=== PATIENT | female | born 1980 | race Caucasian/White ===

== ENCOUNTER 2020-04-24 08:06 | Day surgery (SDC) | payer MEDICAID ==
[2020-04-24] MEDS ORDERED: Midazolam 1 MG/ML 2 ML SDV ONE (08:08)
[2020-04-24] MEDS ORDERED: Propofol 200 MG/20 ML SDV ONE (08:08)
[2020-04-24] MEDS ORDERED: fentaNYL 100 MCG/2 ML SDV ONE (08:08)
[2020-04-24] MEDS ORDERED: Cyanocobalamin (Vitamin B12) 1,000 MCG/ML SDV IM ONE (09:00)
[2020-04-24] MEDS ORDERED: Lactated Ringers 1,000 ML IV ONE (09:00)
[2020-04-24] MEDS ORDERED: Glycopyrrolate 0.2 MG/ML 2 ML SDV IVPUSH ONE (10:00)
[2020-04-24] MEDS ORDERED: MVI, Adult with Vitamin K 10 ML, Thiamine 200 MG, Chromium/Copper/Mang/Selen/Zn 1 ML in... IV ONE ×4 (10:00)
--- NOTE | 2020-04-29 12:29 | OR ---
DATE OF PROCEDURE: 04/24/2020 SURGEON: Francis Shafer MD PREOPERATIVE DIAGNOSIS: Severe gastroesophageal reflux symptoms, status post a lap band placement. POSTOPERATIVE DIAGNOSES: 1. Marked esophagitis with esophageal dilation above laparoscopic adjustable gastric band. 2. Patchy antral gastritis. OPERATIVE PROCEDURE: Esophagogastroduodenoscopy with antral biopsies for CLOtest. ANESTHESIA: IV sedation. INDICATION FOR PROCEDURE: This is a 39-year-old status post laparoscopic adjustable gastric band placement and the band placement was done in July 2012. Recently, the patient had increasing problems with severe reflux symptoms. The symptoms continued despite the band fluid having been removed recently. The plan is to proceed with upper GI endoscopy with evaluation of band status. Potential risks including bleeding and perforation were discussed, and the patient wishes to proceed. DETAILS OF PROCEDURE: The patient was taken to the operating room, placed in a left lateral decubitus position. IV sedation was administered, after which the upper GI endoscope was passed orally through the length of the esophagus into the stomach with retroflexion view of the fundus, and thereafter through the pyloric channel and into the proximal duodenum. Findings included a normal hypopharynx, larynx, and upper esophageal sphincter, and esophageal body. However, there was marked dilation and retained fluid, which were both consistent of bilious material as well as some old retained undigested food. This was associated with marked esophagitis with the distal esophageal mucosa being diffusely reddened and edematous and quite friable. The band placement appeared to be appropriate and was otherwise not narrowed at that area, i.e. there is no mechanical obstruction at the level of the band placement. Retroflexion within the stomach revealed no complications such as band erosion. Thee was some patchy redness in the antrum of the stomach. Otherwise, the pyloric channel and proximal duodenum were unremarkable. At this point, biopsies were obtained from the antrum and sent for CLOtest for H. pylori. Minimal bleeding from the biopsy site was seen and as much fluid was removed from the stomach and distal esophagus as possible at this point and the procedure was then concluded. The patient appeared to be a good candidate for conversion to a Tiffanie-en-Y gastric bypass based on her persistent obesity and ongoing complications regarding her band in terms of esophagitis and significant likelihood of developing pulmonary complications over time if this present clinical presentation is not adequately treated. Francis Shafer MD /[id number]
== END 2020-04-24 11:45 | disposition home or self-care (01) ==
LOC: JP.SDS 08:06
PROVIDERS: ATTEND Surgery
DX: K29.70 Gastritis, unspecified, without bleeding (principal); K20.0 Eosinophilic esophagitis; I10 Essential (primary) hypertension; I48.91 Unspecified atrial fibrillation; Z98.84 Bariatric surgery status
CPT/HCPCS: 43239; 81025; 87081; J2250; J2704; J3010; J3411; J3420; J3490; J7120

== ENCOUNTER 2020-08-26 06:43 | Inpatient (IN) | payer BC, MEDICAID ==
[2020-08-26] MEDS: Dextrose 5%-Lactated Ringers 1,000 ML IV SCH ×2 (06:30→12:22)
[~2020-08-26 06:43] MED LIST: cefOXitin 2 GM Vial ONE
[2020-08-26] MEDS ORDERED: Scopolamine 1.5 MG Transdermal Patch TOP SCH (07:00)
[2020-08-26] MEDS ORDERED: Acetaminophen 500 MG Tab PO ONE (07:00)
[2020-08-26] MEDS ORDERED: fentaNYL 250 MCG/5 ML SDV ONE ×2 (07:14→08:38)
[2020-08-26] MEDS ORDERED: Rocuronium 50 MG/5 ML Vial ONE ×2 (07:15→09:08)
[2020-08-26] MEDS ORDERED: Propofol 200 MG/20 ML SDV ONE (07:15)
[2020-08-26] MEDS ORDERED: Neostigmine Methylsulfate 1 MG/ML 5 ML Syringe ONE (07:15)
[2020-08-26] MEDS ORDERED: Ondansetron 4 MG/2 ML SDV ONE (07:15)
[2020-08-26] MEDS ORDERED: Succinylcholine 200 MG/10 ML MDV ONE (07:15)
[2020-08-26] MEDS ORDERED: Glycopyrrolate 0.2 MG/ML 5 ML MDV ONE (07:15)
[2020-08-26] MEDS ORDERED: Dexamethasone 4 MG/ML SDV ONE (07:15)
[2020-08-26] MEDS ORDERED: cefOXitin 2 GM in Sodium Chloride 0.9% 50 ML IV ONE (08:00)
[2020-08-26] MEDS ORDERED: Lidocaine 1% 2 ML ONE (08:09)
[2020-08-26] MEDS ORDERED: Ketamine 500 MG/5 ML MDV IV SCH (08:15)
[2020-08-26] MEDS ORDERED: Ketamine 50 MG in Sodium Chloride 0.9% 49.5 ML IV SCH (08:15)
[2020-08-26] MEDS ORDERED: Labetalol 20 MG/4 ML Syringe ONE (10:06)
[2020-08-26] MEDS ORDERED: fentaNYL 100 MCG/2 ML SDV ONE (10:23)
[2020-08-26] MEDS ORDERED: fentaNYL 100 MCG/2 ML SDV IVPUSH ONE (11:24)
[2020-08-26] MEDS ORDERED: hydrOXYzine HCL 100 MG/2 ML SDV IM ONE (11:24)
[2020-08-26] MEDS ORDERED: Non-Formulary Medication 1 Each IV ONE (12:15)
[2020-08-26] MEDS ORDERED: Cyclobenzaprine 10 MG Tab PO PRN (12:19)
[2020-08-26] MEDS: HYDROmorphone 1 MG/ML Syringe IV PRN ×2 (12:29→14:33)
[2020-08-26] MEDS ORDERED: Dextrose 5%-Lactated Ringers 1,000 ML IV SCH (12:30)
[2020-08-26] MEDS ORDERED: Acetaminophen 500 MG Tab PO PRN (13:00)
[2020-08-26] MEDS ORDERED: hydrOXYzine HCL 100 MG/2 ML SDV IM PRN (13:00)
[2020-08-26] MEDS ORDERED: Labetalol 20 MG/4 ML Syringe IVPUSH PRN (13:00)
[2020-08-26] MEDS ORDERED: Metoclopramide 10 MG/2 ML SDV IVPUSH PRN (13:00)
[2020-08-26] MEDS ORDERED: Insulin Lispro 100 Unit/ML 3 ML KwikPen SUBCUT PRN (13:00)
[2020-08-26] MEDS ORDERED: Calcium Gluconate 10% 1 GM/10 ML SDV IVPUSH PRN (13:00)
[2020-08-26] MEDS ORDERED: diphenhydrAMINE 50 MG/ML SDV IVPUSH PRN (13:00)
[2020-08-26] MEDS ORDERED: Ondansetron 4 MG/2 ML SDV IVPUSH PRN (13:00)
[2020-08-26] MEDS: oxyCODONE 5 MG Tab PO PRN ×2 (13:41→19:28)
[2020-08-26] MEDS ORDERED: Pantoprazole 40 MG Vial IVPUSH SCH (14:00)
[2020-08-26] MEDS: cefOXitin 2 GM in Sodium Chloride 0.9% 50 ML IV SCH ×2 (14:42→19:20)
[2020-08-26] MEDS: Acetaminophen 500 MG Tab PO SCH ×2 (14:48→21:24)
[2020-08-26] MEDS ORDERED: MVI, Adult with Vitamin K 10 ML, Thiamine 200 MG, Zinc/Copper/Manganese/Selenium 1 ML i... IV SCH ×4 (16:00)
[2020-08-26] MEDS: HYDROmorphone 0.5 MG/0.5 ML Syringe IVPUSH PRN ×2 (17:46→23:01)
[2020-08-26] MEDS: Heparin Sodium 5,000 Units/ML Vial SUBCUT SCH (17:49)
[2020-08-26] MEDS: Metoprolol Tartrate 50 MG Tab PO SCH (21:21)
[2020-08-27] MEDS: cefOXitin 2 GM in Sodium Chloride 0.9% 50 ML IV SCH ×3 (02:15→13:04)
[2020-08-27] MEDS ORDERED: Iopamidol 612 MG/ML 50 ML SDV PO ONE (03:43)
[2020-08-27] MEDS: oxyCODONE 5 MG Tab PO PRN ×3 (05:00→20:39)
[2020-08-27] MEDS: HYDROmorphone 0.5 MG/0.5 ML Syringe IVPUSH PRN (05:04)
[2020-08-27] MEDS: Heparin Sodium 5,000 Units/ML Vial SUBCUT SCH ×2 (05:20→17:58)
[2020-08-27] MEDS: Acetaminophen 500 MG Tab PO SCH ×3 (05:20→22:45)
[2020-08-27] MEDS ORDERED: Ondansetron 4 MG Tab.DIS PO PRN (07:04)
[2020-08-27] MEDS ORDERED: Lactated Ringers 1,000 ML IV SCH (07:15)
--- NOTE | 2020-08-27 08:18 | PN ---
DATE OF SERVICE: 08/27/2020 SUBJECTIVE: Lilly is a pleasant 39-year-old female who is postoperative day #1. Upper GI was normal this morning. Temp max of 101. 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 Pain has been managed with IV Dilaudid and oral oxycodone. Oral intake 1180. Urine output via Washington catheter is 1430. Washington catheter was discontinued at 0500 hours. MAGDI drain put out 140 mL of a light pink drainage. REVIEW OF SYSTEMS: Remainder of review of systems negative for any pertinent positives and negatives. OBJECTIVE: GENERAL: Lilly Allison is a pleasant 39-year-old female. She is resting with a cold washcloth over her forehead, reporting earlier she had a headache, but it is gone now. VITAL SIGNS: TPR 99.8, 76, 18. Blood pressure 108/62. HEENT: Negative. NECK: Supple. HEART: Regular rate and rhythm. LUNGS: Clear. ABDOMEN: Dressings dry and intact. MAGDI drain as above. Abdominal binder is on. EXTREMITIES: Without peripheral edema. ASSESSMENT: Diagnostic laparoscopy with; 1. Removal of laparoscopic gastric band system. 2. Formation of Tiffanie-en-Y gastric bypass surgery. 3. Liver biopsy. 4. Partial gastrectomy. POSTOPERATIVE DIAGNOSES: 1. Intolerance and malformation of laparoscopic gastric band. 2. Marked hepatomegaly. 3. Deserosalization of the stomach after takedown of laparoscopic gastric band system. Date of procedure: 08/26/2020. PLAN: 1. Discontinue Accu-Cheks. 2. Discontinue D5 LR. 3. IV solution changed to lactated Ringer's 100 mL per hour. 4. Step 1 gastric bypass diet with milk and protein drinks. 5. May shower. 6. Atarax 50 mg q.4 hours. p.r.n. pain. 7. Zofran ODT 4 mg every 4 hours p.r.n. nausea. 8. Communication order written for 3 med cups per hour, 1 every 20 minutes, record at bedside. 9. Discontinue cardiac monitoring and continuous pulse ox. 10.Start home diltiazem HCl 180 mg p.o. daily. 11.Plan to start Xarelto in a.m. 12.We will evaluate p.r.n. or in a.m. Milady May PA-C /[id number]
--- NOTE | 2020-08-27 09:21 | CR ---
[facility] HISTORY: Postbariatric surgery FINDINGS: Patient swallowed water-soluble contrast. Upright views of the abdomen show no evidence of extravasation or obstruction. There is a left upper quadrant surgical drain IMPRESSION: Status post bariatric surgery No extravasation or obstruction seen
[2020-08-27] MEDS: Metoprolol Tartrate 50 MG Tab PO SCH ×2 (09:47→20:33)
[2020-08-27] MEDS: Diltiazem 180 MG Cap.CD PO SCH (09:48)
[2020-08-27] MEDS: hydrOXYzine HCl 25 MG Tab PO PRN ×2 (09:48→14:19)
[2020-08-27] MEDS: SCOPOLAMINE PATCH CHECK TOP SCH (09:49)
[2020-08-27] MEDS ORDERED: Pantoprazole 40 MG Delayed-Release Granules 1 Packet PO SCH (16:00)
[2020-08-27] MEDS ORDERED: MVI, Adult with Vitamin K 10 ML, Thiamine 200 MG, Zinc/Copper/Manganese/Selenium 1 ML i... IV SCH ×4 (16:00)
[2020-08-28] MEDS: oxyCODONE 5 MG Tab PO PRN ×2 (02:55→09:32)
[2020-08-28] MEDS: Acetaminophen 500 MG Tab PO SCH (05:48)
[2020-08-28] MEDS: Heparin Sodium 5,000 Units/ML Vial SUBCUT SCH (05:49)
[2020-08-28] MEDS ORDERED: Magnesium Hydroxide 400 MG/5 ML Susp 30 ML Cup PO PRN (06:57)
[2020-08-28] MEDS ORDERED: Rivaroxaban 10 MG Tab PO SCH (08:00)
[2020-08-28] MEDS: SCOPOLAMINE PATCH CHECK TOP SCH (08:42)
[2020-08-28] MEDS: Diltiazem 180 MG Cap.CD PO SCH (08:42)
[2020-08-28] MEDS: Metoprolol Tartrate 50 MG Tab PO SCH (08:42)
[2020-08-28] MEDS ORDERED: Cyanocobalamin (Vitamin B12) 1,000 MCG/ML SDV IM ONE (09:00)
--- NOTE | 2020-08-28 10:39 | DISCH ---
ADMISSION DIAGNOSES: 1. Morbid obesity. 2. BMI 54.4. 3. Essential hypertension. 4. Paroxysmal atrial fibrillation. DISCHARGE DIAGNOSES: Diagnostic laparoscopy with: 1. Removal of laparoscopic gastric band system. 2. Formation of Tiffanie-en-Y gastric bypass surgery. 3. Liver biopsy. 4. Partial gastrectomy. POSTOPERATIVE DIAGNOSES: 1. Intolerance and malformation of laparoscopic gastric band. 2. Marked hepatomegaly. 3. Deserosalization of the stomach after takedown of the laparoscopic gastric band. Date of procedure: 08/26/2020. HISTORY: Lilly Allison is a pleasant 39-year-old female with longstanding history of morbid obesity and increasing comorbidities. After preoperative evaluation and discussion of possible risks and possible complications, she wished to proceed with surgical procedure. HOSPITAL COURSE: Lilly Mcdermott had her surgery on 08/26/2020. She had no operative complications. On postoperative day 1, her upper GI was normal and she was started on step 1 with milk or protein drinks only due to difficult anastomosis, tissue friable, and weak due to lap band. Tolerated step 1 with milk and protein drink diet. Vital signs have been normal. After the 1st 24 hours of surgery, she did have a spike during that time of 101. On postoperative day 2, Lilly Allison is able to be discharged to home. She received adequate dietary teaching. Vitamin B12 mcg IM given. Pain was controlled. Activity good and she was able to be discharged to home. PHYSICAL EXAMINATION: GENERAL: Lilly Allison is a 39-year-old female, alert and orientated. VITAL SIGNS: TPR 98.6, 78, 16, blood pressure 137/65. HEENT: Negative. NECK: Supple. HEART: Regular rate and rhythm. LUNGS: Clear. ABDOMEN: MAGDI drain is intact, but draining a light pink drainage and will be removed prior to discharge. Abdominal binder has been on. Dressings dry and intact. EXTREMITIES: Without peripheral edema. DISPOSITION: Discharged to home. CONDITION: Stable and improving. FOLLOWUP APPOINTMENT: With Milady May PA-C, on 09/05/2020, at 10 a.m. HOME MEDICATIONS: Hydroxyzine; Atarax 50 mg p.o. q.4 hours p.r.n. pain, #40; Zofran ODT 4 mg every 4 hours p.r.n. nausea and vomiting. She will continue to take home medications. Tylenol Extra Strength 1000 mg p.o. q.8 hours p.r.n. pain, Cardizem/diltiazem 180 mg p.o. daily, Xarelto 20 mg p.o. daily, metoprolol tartrate 100 mg p.o. b.i.d., milk of magnesia 2 doses were sent home with the patient, to take one when getting home and then tomorrow morning if no bowel movement. DIET: Step 2 gastric bypass diet with protein drinks and milk for 2 weeks until 09/10/2020. ACTIVITY: No lifting greater than 10 pounds for 2 weeks. OTHER ACTIVITY: Walk at least 6 times inside your home daily. Do not drive for 1 week. Shower/bathing: May shower. DISCHARGE INSTRUCTIONS: Keep operative site clean and dry. Wear abdominal binder for 2 weeks and then as tolerated. Notify provider if any fever, increased pain, swelling, redness, drainage, nausea, vomiting. Use incentive spirometer 10 times every hour while awake for 1 week. Keep record of protein and liquid intake and bring to clinic appointments. /[id number]
--- NOTE | 2020-09-01 08:23 | OR ---
DATE OF PROCEDURE: 08/26/2020 SURGEON: Francis Shafer MD PREOPERATIVE DIAGNOSIS: Persistent morbid obesity and progressive intolerance of laparoscopic adjustable gastric band. POSTOPERATIVE DIAGNOSES: 1. Persistent morbid obesity and progressive intolerance of laparoscopic adjustable gastric band. 2. Marked hepatomegaly. 3. Area of deserosalization of stomach, status post takedown of laparoscopic adjustable gastric band. OPERATIVE PROCEDURES: Diagnostic laparoscopy with: 1. Removal of laparoscopic adjustable gastric band system (89564). 2. Formation of Tiffanie-en-Y gastric bypass (19558). 3. Cruz-Cut needle liver biopsy (20670). 4. Partial gastrectomy (20680). ANESTHESIA: General. ASSISTANTS: Milady May PA-C and ERIBERTO Guzman student. INDICATIONS FOR PROCEDURE: This is a 39-year-old status post previous laparoscopic adjustable gastric band placement in [place], [place]. She has had relatively poor weight loss. The patient is morbidly obese following the procedure and then more recently has developed progressive intolerance of laparoscopic adjustable gastric band system with there being a large amount of heartburn and esophageal dilation associated with it. Plan is to proceed with removal of the band system and conversion to Tiffanie-en-Y gastric bypass. Potential risks of the procedure including bleeding, infection, leaks from various GI tract closures, problems with bowel obstruction over time were all reviewed, and the patient wishes to proceed. DETAILS OF PROCEDURE: The patient was taken to the operating room and placed in a supine position. After general endotracheal anesthesia was induced, a Washington catheter had been inserted, and the patient placed in a lithotomy position. The abdomen was then prepped and draped. 15 cm inferior and 5 cm left of xiphoid process, a transverse incision was made and the peritoneal cavity entered under direct vision with an Optiview trocar, inflated to 15 mmHg pressure with CO2. Laparoscope was reinserted. No underlying trocar insertion site injuries were seen. Bilateral transversus abdominis plane blocks were then placed and 5 additional trocars were placed across the upper mid abdomen. The patient was noted to have some of the port tubing and draping across the area of the small bowel dissection. This was divided distally more or less adjacent to the band and then proximally just below where it exited the intraperitoneal location which included removal of the joint between the 2 sections of port tubing. The liver was noted to be markedly enlarged and fatty infiltrated. Cruz-Cut needle biopsies were obtained from the left lobe of the liver. Minimal bleeding from the biopsy sites was controlled with electrocautery. The omentum was then divided in the midline up to the level of the transverse colon. This allowed identification of the small bowel to the ligament of Treitz. Small bowel was then traced out 150 cm distal to that point where it was divided transversely with a RACHEL stapler. Small bowel was then traced out additional 150 cm where the [id number] enteroenterostomy was accomplished with internal firing of the Endo-RACHEL 60 mm stapler. Common opening was then closed transversely with the same stapler, angles anastomosed, and mesenteric defect closed with some 0 Ethibond stitch along with fibrin sealant. Divided end of Tiffanie limb was then brought through an antecolic position up to the level of the esophagogastric junction without significant tension. The liver was then retracted anteriorly. Some minor adhesions between the band system and the liver were taken down with Harmonic scalpel. The dissection then began over the band with primarily electrocautery along with some surgical tesfaye, thus freeing the band from the surrounding soft tissue attachments. Band was then divided and removed from the point where the band was located around the gastric cardia and that specimen then delivered from the field. A portion of the stomach was significantly deserosalized inferior to where the band attachments had been taken down. This area was excised by means of surgical tesfaye and the partial gastrectomy specimen delivered from the field. The level of the band location was satisfactory with regard to the size of the pouch above that. Given this, this was divided with firings of the RACHEL black loads, and at that point, adequate division of the stomach had been completed. Both staple lines appeared to be intact. The anvil of a 25 mm EEA stapler was then passed through the mouth, divided, and then attached to Sumner sump tube. The latter was brought down through a small opening posterior to the gastric staple line and this allowed the anvil likewise to be pulled down within the stomach pouch. The divided Tiffanie limb was then opened and main body of the EEA stapler passed several centimeters in the lumen of the small bowel, brought up the anvil, united with it, thus creating the gastrojejunostomy. Upon removal of the stapler, double donuts of mucosa were noted within it. Small bowel was closed off with a vascular staple line. Gastrojejunostomy was then reinforced with some 3-0 Vicryl seromuscular stitch along with fibrin sealant. Leak test was accomplished with injection of 120 mL of air in the gastric pouch, while it submerged with cefoxitin-containing saline solution. No leaks were identified. A single Simone-Hearn drain was then placed adjacent to the gastrojejunostomy and from there up into the splenic fossa and taken out through the left lateral trocar site. Trocars were then removed and peritoneal cavity deflated. Incisions were closed with 4-0 Vicryl skin stitch as was the drain affixed, and the patient was taken to the recovery room in satisfactory condition. Physician senior court office assistant, Milady May, played an essential role in assisting in this case, helping to position the patient, retract structures as needed, as well as suturing and cutting sutures when indicated. Her presence improved patient's safety and decreased operative time. Francis Shafer MD /[id number]
== END 2020-08-28 11:17 | disposition home or self-care (01) | DRG 222 ==
LOC: JP.MS 06:43 → JP.SDS 06:46 → EDSTATUS 07:15 → JP.MS 11:45
PROVIDERS: ADMIT Surgery; ATTEND Surgery
PROC: 0DP64CZ Removal of Extraluminal Device from Stomach, Percutaneous Endoscopic Approach (ICD-10-PCS; principal; 2020-08-26)
PROC: 0D164ZA Bypass Stomach to Jejunum, Percutaneous Endoscopic Approach (ICD-10-PCS; 2020-08-26)
PROC: 0FB24ZX Excision of Left Lobe Liver, Percutaneous Endoscopic Approach, Diagnostic (ICD-10-PCS; 2020-08-26)
PROC: 0DB64ZZ Excision of Stomach, Percutaneous Endoscopic Approach (ICD-10-PCS; 2020-08-26)
DX: K95.09 Other complications of gastric band procedure (principal); E66.01 Morbid (severe) obesity due to excess calories; Z68.43 Body mass index [BMI] 50.0-59.9, adult; I10 Essential (primary) hypertension; I48.0 Paroxysmal atrial fibrillation; R16.0 Hepatomegaly, not elsewhere classified; Z90.49 Acquired absence of other specified parts of digestive tract; Z98.890 Other specified postprocedural states; K31.89 Other diseases of stomach and duodenum
CPT/HCPCS: 36415; 74240; 74240-26; 82962; 86850; 86900; 86901; 88300; 88307; 88313; 94762; A9270-GY; C9113; J0171; J0330; J0694; J1100; J1170; J1644; J2405; J2704; J2710; J2795; J3010; J3410; J3411; J3420; J3475; J3490; J7050; J7120; J7121; Q9967

== ENCOUNTER 2020-10-21 08:20 | Day surgery (SDC) | payer BC, MEDICAID ==
[~2020-10-21 08:20] MED LIST changes: +Cyanocobalamin (Vitamin B12) 1,000 MCG/ML SDV IM ONE; +Lactated Ringers 1,000 ML IV ONE; +Midazolam 1 MG/ML 2 ML SDV ONE; +Propofol 200 MG/20 ML SDV ONE; -cefOXitin 2 GM Vial ONE; +fentaNYL 100 MCG/2 ML SDV ONE
[2020-10-21] MEDS ORDERED: MVI, Adult with Vitamin K 10 ML, Thiamine 200 MG, Zinc/Copper/Manganese/Selenium 1 ML i... IV ONE ×4 (08:45)
--- NOTE | 2020-10-27 13:32 | OR ---
DATE OF PROCEDURE: 10/21/2020 SURGEON: Francis Shafer MD PREOPERATIVE DIAGNOSIS: Probable stricture at gastrojejunostomy. POSTOPERATIVE DIAGNOSIS: Stricture at gastrojejunostomy. OPERATIVE PROCEDURE: Upper GI endoscopy with dilation of gastrojejunostomy (72162). ANESTHESIA: IV sedation. INDICATIONS FOR PROCEDURE: This is a 39-year-old female status post band conversion to Tiffanie- en-Y gastric bypass on 08/26/2020. She presents now with some probable stricturing at gastrojejunostomy. Plan is to proceed with an upper endoscopy with dilation as indicated. Potential risks including bleeding and perforation were discussed, and the patient wishes to proceed. DETAILS OF PROCEDURE: The patient was taken to the operating room and placed in a left lateral decubitus position. IV sedation was administered, after which the upper GI endoscope was passed orally through the length of the esophagus and into the area of the gastric pouch. The patient had no retained food or fluid, but did have a fairly tight stricture at the gastrojejunostomy. Bard gastrointestinal balloon catheter was then centered across the anastomosis and inflated to 36-English size level 2. Balloon was held in inflated position for 1 minute, after which it was deflated. The scope could easily then be passed through the anastomosis, dilation was evident, and there were no evident complications. Scope was then withdrawn and the procedure was then concluded. The patient was taken to the recovery room in satisfactory condition. Francis Shafer MD /[id number]
== END 2020-10-21 13:23 | disposition home or self-care (01) ==
LOC: JP.SDS 08:20
PROVIDERS: ATTEND Surgery
DX: K22.2 Esophageal obstruction (principal); I10 Essential (primary) hypertension
CPT/HCPCS: 43245; 81025; J2250; J2704; J3010; J3411; J3420; J7120

== ENCOUNTER 2020-11-11 07:38 | Day surgery (SDC) | payer BC, MEDICAID ==
[~2020-11-11 07:38] MED LIST changes: +Glycopyrrolate 0.2 MG/ML 2 ML SDV IVPUSH ONE
[2020-11-11] MEDS ORDERED: MVI, Adult with Vitamin K 10 ML, Thiamine 200 MG, Zinc/Copper/Manganese/Selenium 1 ML i... IV ONE ×4 (09:00)
[2020-11-11] MEDS ORDERED: MVI, Adult with Vitamin K 10 ML, Thiamine 200 MG, Chromium/Copper/Mang/Selen/Zn 1 ML in... IV ONE ×4 (09:00)
--- NOTE | 2020-12-02 16:35 | OR ---
DATE OF PROCEDURE: 11/11/2020 SURGEON: Francis Shafer MD PREOPERATIVE DIAGNOSIS: Probable stricturing of gastrojejunostomy. POSTOPERATIVE DIAGNOSES: 1. Moderate stricturing of the gastrojejunostomy. 2. Retained foreign body (ingested celery) at the level of gastrojejunostomy. OPERATIVE PROCEDURE: Upper GI endoscopy with: 1. Dilation of gastrojejunostomy (10131). 2. Removal of foreign body at the level of gastrojejunostomy (43299). ANESTHESIA: IV sedation. INDICATIONS FOR PROCEDURE: This is a 40-year-old status post conversion of band status to Tiffanie-en-Y gastric bypass in the mid August of this year. The patient underwent one previous endoscopy for the strictured gastrojejunostomy on 10/21/2020 and now presents with symptoms suggestive of recurrent stricturing at that level. Potential risks of procedure including bleeding and perforation were discussed, and the patient wishes to proceed. DETAILS OF PROCEDURE: The patient was taken to the operating room and placed in a left lateral decubitus position. IV sedation was administered, after which the upper GI endoscope was placed and positioned down into the level of the gastrojejunostomy. The patient was noted to have some retained celery within that area. Bard gastrointestinal catheter was centered across the gastrojejunostomy and inflated to 36-Salvadorean level 3. This was held in position for 1 minute, after which the balloon catheter deflated and withdrawn. The scope could easily then be passed through the anastomosis and no complications were noted. The foreign body consisting of celery was then manually removed from the area of the gastrojejunostomy into the Tiffanie limb, would easily passed from that point forward. The scope was then withdrawn and procedure concluded. There were no evident complications. Francis Shafer MD /[id number]
== END 2020-11-11 11:55 | disposition home or self-care (01) ==
LOC: JP.SDS 07:38
PROVIDERS: ATTEND Surgery
DX: K91.89 Other postprocedural complications and disorders of digestive system (principal); T18.8XXA Foreign body in other parts of alimentary tract, initial encounter; I10 Essential (primary) hypertension; E66.9 Obesity, unspecified; Z68.42 Body mass index [BMI] 45.0-49.9, adult
CPT/HCPCS: 43245; 43247; 81025; J2250; J2704; J3010; J3411; J3420; J3490; J7120

== ENCOUNTER 2021-02-03 05:18 | Day surgery (SDC) | payer BC, MEDICAID ==
[~2021-02-03 05:18] MED LIST changes: -Cyanocobalamin (Vitamin B12) 1,000 MCG/ML SDV IM ONE; -Glycopyrrolate 0.2 MG/ML 2 ML SDV IVPUSH ONE; -Lactated Ringers 1,000 ML IV ONE; +MVI, Adult with Vitamin K 10 ML, Thiamine 200 MG, Chromium/Copper/Mang/Selen/Zn 1 ML in... IV ONE; -Midazolam 1 MG/ML 2 ML SDV ONE; -Propofol 200 MG/20 ML SDV ONE; -fentaNYL 100 MCG/2 ML SDV ONE
[2021-02-03] MEDS ORDERED: Lactated Ringers 1,000 ML IV SCH (06:00)
[2021-02-03] MEDS ORDERED: fentaNYL 100 MCG/2 ML SDV ONE (06:56)
[2021-02-03] MEDS ORDERED: Propofol 200 MG/20 ML SDV ONE (06:56)
[2021-02-03] MEDS ORDERED: Midazolam 1 MG/ML 2 ML SDV ONE (06:57)
[2021-02-03] MEDS ORDERED: Cyanocobalamin (Vitamin B12) 1,000 MCG/ML SDV IM ONE (07:00)
[2021-02-03] MEDS ORDERED: MVI, Adult with Vitamin K 10 ML, Thiamine 200 MG, Chromium/Copper/Mang/Selen/Zn 1 ML in... IV ONE ×4 (07:15)
--- NOTE | 2021-02-15 14:32 | OR ---
DATE OF PROCEDURE: 02/03/2021 SURGEON: Farncis Shafer MD PREOPERATIVE DIAGNOSIS: Probable stricture at gastrojejunostomy. POSTOPERATIVE DIAGNOSIS: Moderate stricture at gastrojejunostomy. OPERATIVE PROCEDURE: Upper gastrointestinal endoscopy with dilation of gastrojejunostomy (71767). ANESTHESIA: IV sedation. INDICATION FOR PROCEDURE: This is a 40-year-old status post band conversion to Tiffanie-en-Y gastric bypass on 08/16/2020. She presents now with some recurrent symptoms of stricturing at her gastrojejunostomy. Plan is to proceed with an upper GI endoscopy with dilation as indicated. Potential risks including bleeding and perforation were discussed, and the patient wishes to proceed. DETAILS OF PROCEDURE: The patient was taken to the operating room and placed in a left lateral decubitus position. IV sedation was administered, after which the upper GI endoscope was passed orally through the length of the esophagus and into the area of the gastric pouch. The patient was noted to have moderate stricture at the gastrojejunostomy. A Bard gastrointestinal balloon catheter was centered across the anastomosis and inflated to 36-Luxembourgish size. This was held in position for 1 minute, after which balloon catheter was deflated and withdrawn. The scope was easily passed through the anastomosis. No complications were noted and the procedure concluded. The patient was taken to the recovery room in satisfactory condition. Francis Shafer MD /[id number]
== END 2021-02-03 10:00 | disposition home or self-care (01) ==
LOC: JP.SDS 05:18
PROVIDERS: ATTEND Surgery
DX: K31.89 Other diseases of stomach and duodenum (principal); K31.5 Obstruction of duodenum; I10 Essential (primary) hypertension; Z98.84 Bariatric surgery status
CPT/HCPCS: 43245; 81025; J2250; J2704; J3010; J3411; J3420; J7120

== ENCOUNTER 2021-05-19 08:16 | Day surgery (SDC) | payer BC, MEDICAID ==
[~2021-05-19 08:16] MED LIST changes: -MVI, Adult with Vitamin K 10 ML, Thiamine 200 MG, Chromium/Copper/Mang/Selen/Zn 1 ML in... IV ONE; +Midazolam 1 MG/ML 2 ML SDV ONE; +Propofol 200 MG/20 ML SDV ONE; +fentaNYL 100 MCG/2 ML SDV ONE
[2021-05-19] MEDS ORDERED: Cyanocobalamin (Vitamin B12) 1,000 MCG/ML SDV IM ONE (08:30)
[2021-05-19] MEDS ORDERED: Lactated Ringers 1,000 ML IV SCH (08:30)
[2021-05-19] MEDS ORDERED: Glycopyrrolate 0.2 MG/ML 2 ML SDV IVPUSH ONE (09:00)
[2021-05-19] MEDS ORDERED: MVI, Adult with Vitamin K 10 ML, Thiamine 200 MG, Chromium/Copper/Mang/Selen/Zn 1 ML in... IV ONE ×4 (10:00)
--- NOTE | 2021-05-21 11:16 | OR ---
DATE OF PROCEDURE: 05/19/2021 SURGEON: Francis Shafer MD PREOPERATIVE DIAGNOSIS: Probable stricture at gastrojejunostomy. POSTOPERATIVE DIAGNOSIS: Mild stricture at gastrojejunostomy. OPERATIVE PROCEDURE: Upper GI endoscopy with dilation of gastrojejunostomy (18398). ANESTHESIA: IV sedation. INDICATION FOR PROCEDURE: The patient is several months status post conversion of a band to Tiffanie-en-Y gastric bypass status. She presents now with some symptoms suggestive of some recurrent stricturing at the gastrojejunostomy. Plan is to proceed with an upper GI endoscopy with dilation as indicated. Potential risks including bleeding and perforation were discussed and the patient wishes to proceed. DETAILS OF PROCEDURE: The patient was taken to the operating room and placed in a left lateral decubitus position. IV sedation was administered after which the upper GI endoscope was passed orally through the length of the esophagus and into the gastric pouch, and the scope was then able to be passed through the gastrojejunostomy roughly 20 cm into the Tiffanie limb. At most, there was a very mild stricture present with the scope easily being passed through the gastrojejunostomy. A Bard gastrointestinal balloon catheter was then centered across the anastomosis and inflated to 45-Turkish size and held in position for 1 minute. The balloon was then deflated. There was a mild amount of dilation having occurred. The procedure was then concluded. There were no evident complications. Francis Shafer MD Job #: [id number]
== END 2021-05-19 12:23 | disposition home or self-care (01) ==
LOC: JP.SDS 08:16
PROVIDERS: ATTEND Surgery
DX: K91.89 Other postprocedural complications and disorders of digestive system (principal); I10 Essential (primary) hypertension
CPT/HCPCS: 43245; J2250; J2704; J3010; J3411; J3420; J3490; J7120